=== PATIENT | male | born 1970 | race Caucasian/White ===

== ENCOUNTER 2016-08-07 16:34 | Emergency (ER) | payer MEDICAID ==
[~2016-08-07] VITALS: Ht 162.6 cm; Wt 99.8 kg
[2016-08-07 16:53] VITALS: BP 131/101
--- NOTE | 2016-08-07 17:29 | NUR ---
PATIENT BEING EVALUATED BY Jd TESFAYE OF
[2016-08-07 17:40] VITALS: BP 123/75
--- NOTE | 2016-08-07 17:40 | NUR ---
Patient discharged with v/s stable. Written and verbal after care instructions given and explained. Patient alert, oriented and verbalized understanding of instructions. Ambulatory with steady gait. All questions addressed prior to discharge. ID band removed. Patient advised to follow up with PMD. Rx of GLIPIZIDE,LISINOPRIL,SULINDAC,CLOPIDOGREL,COREG,CYCLOBENZAPRINE,METFORMIN,LANTU S INSULIN,ATORVASTATIN,HUMULIN R,BD SYRINGES given. Patient educated on indication of medication including possible reaction and side effects. Opportunity to ask questions provided and answered.
== END 2016-08-07 17:40 | disposition home or self-care (01) ==
LOC: MED 16:34
DX: Z76.0 Encounter for issue of repeat prescription (principal); E11.9 Type 2 diabetes mellitus without complications; I10 Essential (primary) hypertension

== ENCOUNTER 2017-02-05 13:50 | Emergency (ER) | payer MEDICAID ==
[~2017-02-05] VITALS: Ht 162.6 cm; Wt 109.8 kg
[2017-02-05 14:18] VITALS: BP 150/76
--- NOTE | 2017-02-05 14:30 | NUR ---
Patient to bed 04.
--- NOTE | 2017-02-05 14:42 | NUR ---
PT PRESENTS TO ER W/C/O LBP SINCE LAST NOC. PT DENIES ANY FALL OR INJURY. HX DM, HTN, HYPERLIPIDEMIA. DENIES N/V/D; SKIN IS PINK/WARM/DRY; AAOX4 WITH EVEN AND STEADY GAIT; LUNGS CLEAR BL; HR EVEN AND REGULAR; PT DENIES ANY FEVER, CP, SOB, OR COUGH AT THIS TIME; PATIENT STATES PAIN OF 9/10 AT THIS TIME; VSS; PATIENT POSITIONED FOR COMFORT; HOB ELEVATED; BEDRAILS UP X2; BED DOWN. ER MD MADE AWARE OF PT STATUS.
[2017-02-05] MEDS ORDERED: KETOROLAC 60 MG/2 ML VIAL IM ONE (15:00)
[2017-02-05 15:40] VITALS: BP 120/71
--- NOTE | 2017-02-05 15:40 | NUR ---
Patient discharged with v/s stable. Written and verbal after care instructions given and explained. Patient alert, oriented and verbalized understanding of instructions. Ambulatory with steady gait. All questions addressed prior to discharge. ID band removed. Patient advised to follow up with PMD. Rx of FLEXERIL, TRAMADOL given. Patient educated on indication of medication including possible reaction and side effects. Opportunity to ask questions provided and answered.
== END 2017-02-05 15:40 | disposition home or self-care (01) ==
LOC: MED 13:50
DX: S39.012A Strain of muscle, fascia and tendon of lower back, initial encounter (principal); M62.830 Muscle spasm of back; E11.9 Type 2 diabetes mellitus without complications; I10 Essential (primary) hypertension; X58.XXXA Exposure to other specified factors, initial encounter; Y93.9 Activity, unspecified; Y92.89 Other specified places as the place of occurrence of the external cause; Y99.8 Other external cause status
CPT/HCPCS: 96372; 99283; J1885

== ENCOUNTER 2021-04-24 09:33 | Emergency (ER) | payer SELFPAY ==
[~2021-04-24] VITALS: Ht 165.1 cm; Wt 72.6 kg
[2021-04-24 09:43] VITALS: BP 152/97
--- NOTE | 2021-04-24 09:50 | NUR ---
C/O 08/09 R RIB PAIN S/P FALL X TODAY. PMH: DM
[2021-04-24] MEDS ORDERED: HYDROcodone/APAP 5/325 MG 1 TAB TAB PO ONE (10:00)
[2021-04-24] MEDS ORDERED: ACET-10509 PO (10:52)
[2021-04-24] MEDS ORDERED: ACET-9527 PO (10:52)
[2021-04-24] MEDS ORDERED: IBUP-426 PO (10:52)
[2021-04-24 11:48] VITALS: BP 140/85
--- NOTE | 2021-04-24 11:49 | NUR ---
Patient discharged with v/s stable. Written and verbal after care instructions given and explained. Patient alert, oriented and verbalized understanding of instructions. Ambulatory with steady gait. All questions addressed prior to discharge. ID band removed. Patient advised to follow up with PMD. Rx of HYDROCODONE/ACETAMINOPHEN given. Patient educated on indication of medication including possible reaction and side effects. Opportunity to ask questions provided and answered.
== END 2021-04-24 11:48 | disposition home or self-care (01) ==
LOC: MED 09:33
DX: S22.41XA Multiple fractures of ribs, right side, initial encounter for closed fracture (principal); F17.200 Nicotine dependence, unspecified, uncomplicated; E11.9 Type 2 diabetes mellitus without complications; I10 Essential (primary) hypertension; Z71.6 Tobacco abuse counseling; Z79.899 Other long term (current) drug therapy; V87.8XXA Person injured in other specified noncollision transport accidents involving motor vehicle (traffic), initial encounter; Y93.55 Activity, bike riding; Y92.89 Other specified places as the place of occurrence of the external cause; Y99.8 Other external cause status
CPT/HCPCS: 71101; 99283

== ENCOUNTER 2021-11-03 00:20 | Emergency (ER) | payer MEDICAID ==
[~2021-11-03] VITALS: Ht 162.6 cm; Wt 72.6 kg
[~2021-11-03 00:20] MED LIST: ACET-10509 PO; ACET-9527 PO; IBUP-426 PO
[2021-11-03 00:23] VITALS: BP 130/74
--- NOTE | 2021-11-03 00:23 | NUR ---
to bed ambulatory
--- NOTE | 2021-11-03 00:37 | NUR ---
50 Y/O MALE BIBS FROM HOME, C/O ABCESS TO RIGHT SHOULDER AND LEFT FOREARM X2 WKS. ABCCESS IS RED AND SWOLLEN. PT STATES CONSTANT, SHARP, 9/10 PAIN WITH CHILLS. PT DENIES N/V/D, COUGH, FEEVER, SOB, OR CP. SKIN IS PINK/WARM/DRY. A/OX4, AMBULATORY, UNLABORED BREATHING. HX: DM, HTN, CARDIAC STENT NKA
--- NOTE | 2021-11-03 00:37 | NUR ---
Dr. Fajardo examining patient.
[2021-11-03] MEDS ORDERED: CEPH-588 PO (00:51)
[2021-11-03] MEDS ORDERED: ACET-8386 PO (00:51)
[2021-11-03] MEDS ORDERED: IBUP-2213 PO (00:51)
[2021-11-03 00:57] VITALS: BP 126/70
--- NOTE | 2021-11-03 00:58 | NUR ---
Patient discharged with v/s stable. Written and verbal after care instructions given and explained. Patient alert, oriented and verbalized understanding of instructions. Ambulatory with steady gait. All questions addressed prior to discharge. ID band removed. Patient advised to follow up with PMD. Rx of NORCO, KEFLEX, AND IBUPROFEN given. Patient educated on indication of medication including possible reaction and side effects. Opportunity to ask questions provided and answered. VSS, A/OX4, UNLABORED BREATHING, AMBLULATORY, AND CALM DEMEANOR.
== END 2021-11-03 00:58 | disposition home or self-care (01) ==
LOC: MED 00:20
DX: L02.413 Cutaneous abscess of right upper limb (principal); L03.113 Cellulitis of right upper limb; E11.9 Type 2 diabetes mellitus without complications; I10 Essential (primary) hypertension; F17.200 Nicotine dependence, unspecified, uncomplicated; F15.90 Other stimulant use, unspecified, uncomplicated; Z98.890 Other specified postprocedural states; Z79.899 Other long term (current) drug therapy
CPT/HCPCS: 99283

== ENCOUNTER 2021-11-10 22:46 | Inpatient (IN) | payer MEDICAID ==
[~2021-11-10] VITALS: Ht 165.1 cm; Wt 68.9 kg
[~2021-11-10 22:46] MED LIST changes: +ACET-8386 PO; +CEPH-588 PO; +IBUP-2213 PO
[2021-11-10 22:54] VITALS: BP 145/87
[2021-11-11] MEDS ORDERED: NACL 0.9% 1,000 ML IV ONE (02:45)
[2021-11-11] MEDS ORDERED: KETOROLAC 30 MG/ML VIAL IVP ONE (02:45)
[2021-11-11] MEDS ORDERED: PIPERACILLIN/TAZOBACTAM 3.375 GM in DEXTROSE 5% 50 ML IV ONE (02:45)
[2021-11-11] MEDS ORDERED: VANCOMYCIN 1,000 MG in DEXTROSE 5% 250 ML IV ONE (02:45)
[2021-11-11 03:14] LABS: BASOPHILS % (AUTO) 0.3 % (0.0-2.0); EOSINOPHILS % (AUTO) 0.1 % (0.0-4.0); LYMPHOCYTES # (AUTO) 2.1 K/uL (2.0-11.5); LYMPHOCYTES % (AUTO) 13.7 % (20.5-51.1); MEAN CORPUSCULAR HEMOGLOBIN 29 pg (27-31); MEAN CORPUSCULAR HGB CONC 34 g/dL (33-37); MEAN CORPUSCULAR VOLUME 84.3 fL (80-94); MONOCYTES # (AUTO) 1.2 K/uL (0.8-1.0); MONOCYTES % (AUTO) 7.7 % (1.7-9.3); NEUTROPHILS # (AUTO) 11.8 K/uL (1.8-7.7); NEUTROPHILS % (AUTO) 78.2 % (42.2-75.2); PLATELET COUNT (AUTO) 380 K/uL (140-450); RED BLOOD CELL COUNT(AUTO) 4.51 MIL/uL (4.20-6.10); WHITE BLOOD COUNT (AUTO) 15.2 K/uL (4.8-10.8)
[2021-11-11] MEDS ORDERED: VANCOMYCIN 1,000 MG VIAL ONE (03:23)
[2021-11-11] MEDS ORDERED: PIPERACILLIN/TAZOBACTAM 3.375 GM VIAL IV ONE ×2 (03:23→12:02)
[2021-11-11] MEDS ORDERED: VANCOMYCIN PER PHARMACY MC PRN (03:30)
[2021-11-11 03:42] LABS: ANION GAP 9.8 (8-16); CARBON DIOXIDE 29.1 mmol/L (21-32); CREATININE 0.6 mg/dL (0.6-1.3); POTASSIUM 3.9 mmol/L (3.5-5.1); TOTAL BILIRUBIN 0.3 mg/dL (0.0-1.0)
[2021-11-11] MEDS ORDERED: PIPERACILLIN/TAZOBACTAM 3.375 GM in DEXTROSE 5% 50 ML IV SCH (06:00)
[2021-11-11] MEDS: PIPERACILLIN/TAZOBACTAM 3.375 GM in DEXTROSE 5% 50 ML IV SCH ×4 (06:03→23:11)
[2021-11-11] MEDS ORDERED: ZOLPIDEM 10 MG TAB PO PRN (07:35)
[2021-11-11] MEDS ORDERED: MAG SULF 2000 MG/WATER PREMIX 50 ML IV PRN (07:35)
[2021-11-11] MEDS ORDERED: POTASSIUM CHLORIDE 10 MEQ TABER PO PRN (07:35)
[2021-11-11] MEDS ORDERED: DEXTROSE 50% 50 ML SYR IVP PRN (07:35)
[2021-11-11] MEDS ORDERED: ONDANSETRON 4 MG/2 ML VIAL IVP PRN (07:35)
[2021-11-11] MEDS ORDERED: ACETAMINOPHEN 325 MG TAB PO PRN (07:35)
[2021-11-11] MEDS ORDERED: DOCUSATE SODIUM 100 MG GELCAP PO PRN (07:35)
[2021-11-11 07:41] LABS: BASOPHILS % (AUTO) 0.2 % (0.0-2.0); EOSINOPHILS # (AUTO) 0.1 K/uL (0-0.4); EOSINOPHILS % (AUTO) 0.4 % (0.0-4.0); HEMATOCRIT 40.3 % (36-52); HEMOGLOBIN 13.6 g/dL (12.0-18.0); LYMPHOCYTES # (AUTO) 2.3 K/uL (2.0-11.5); LYMPHOCYTES % (AUTO) 14.5 % (20.5-51.1); MEAN CORPUSCULAR HEMOGLOBIN 29 pg (27-31); MEAN CORPUSCULAR HGB CONC 34 g/dL (33-37); MEAN CORPUSCULAR VOLUME 85.8 fL (80-94); MONOCYTES # (AUTO) 1.3 K/uL (0.8-1.0); MONOCYTES % (AUTO) 8.1 % (1.7-9.3); NEUTROPHILS # (AUTO) 12.2 K/uL (1.8-7.7); NEUTROPHILS % (AUTO) 76.8 % (42.2-75.2); PLATELET COUNT (AUTO) 348 K/uL (140-450); RED BLOOD CELL COUNT(AUTO) 4.69 MIL/uL (4.20-6.10); RED CELL DISTRIBUTION WIDTH 12.9 % (11.6-13.7); WHITE BLOOD COUNT (AUTO) 15.9 K/uL (4.8-10.8)
[2021-11-11 08:13] LABS: ALBUMIN 1.8 g/dL (3.4-5.0); ANION GAP 11.1 (8-16); CARBON DIOXIDE 27.7 mmol/L (21-32); CREATININE 0.6 mg/dL (0.6-1.3); POTASSIUM 3.8 mmol/L (3.5-5.1); TOTAL BILIRUBIN 0.4 mg/dL (0.0-1.0)
[2021-11-11] MEDS: BLOOD GLUCOSE MONITORING 1 DEV DEV FS SCH ×3 (11:46→21:30)
[2021-11-11] MEDS: INSULIN LISPRO SLIDING SCALE 100 UNITS/ML VIAL SUBQ PRN ×3 (11:51→21:34)
[2021-11-11 16:00] VITALS: BP 135/79
[2021-11-11 20:00] VITALS: BP 127/79
[2021-11-11] MEDS: VANCOMYCIN 750 MG in DEXTROSE 5% 250 ML IV SCH (21:23)
[2021-11-11] MEDS: INSULIN LANTUS 100 UNITS/ML 10 ML VIAL SUBQ SCH (21:32)
[2021-11-12 00:30] VITALS: BP 133/65
[2021-11-12 04:00] VITALS: BP 141/86
[2021-11-12] MEDS: PIPERACILLIN/TAZOBACTAM 3.375 GM in DEXTROSE 5% 50 ML IV SCH ×4 (05:22→23:14)
[2021-11-12] MEDS: BLOOD GLUCOSE MONITORING 1 DEV DEV FS SCH ×4 (06:26→20:24)
[2021-11-12] MEDS: INSULIN LISPRO SLIDING SCALE 100 UNITS/ML VIAL SUBQ PRN ×4 (06:28→20:23)
[2021-11-12 07:53] LABS: BASOPHILS # (AUTO) 0.1 K/uL (0.00-0.22); BASOPHILS % (AUTO) 0.3 % (0.0-2.0); EOSINOPHILS % (AUTO) 0.1 % (0.0-4.0); HEMATOCRIT 45.4 % (36-52); LYMPHOCYTES # (AUTO) 2.2 K/uL (2.0-11.5); LYMPHOCYTES % (AUTO) 12.2 % (20.5-51.1); MEAN CORPUSCULAR HEMOGLOBIN 29 pg (27-31); MEAN CORPUSCULAR HGB CONC 33 g/dL (33-37); MEAN CORPUSCULAR VOLUME 87.1 fL (80-94); MONOCYTES # (AUTO) 1.4 K/uL (0.8-1.0); MONOCYTES % (AUTO) 7.7 % (1.7-9.3); NEUTROPHILS # (AUTO) 14.2 K/uL (1.8-7.7); NEUTROPHILS % (AUTO) 79.7 % (42.2-75.2); PLATELET COUNT (AUTO) 443 K/uL (140-450); RED BLOOD CELL COUNT(AUTO) 5.21 MIL/uL (4.20-6.10); RED CELL DISTRIBUTION WIDTH 13.1 % (11.6-13.7); WHITE BLOOD COUNT (AUTO) 17.8 K/uL (4.8-10.8)
[2021-11-12 08:00] VITALS: BP 132/83
[2021-11-12 08:58] LABS: ANION GAP 10.7 (8-16); CARBON DIOXIDE 29.6 mmol/L (21-32); CREATININE 0.7 mg/dL (0.6-1.3); POTASSIUM 4.3 mmol/L (3.5-5.1)
[2021-11-12] MEDS: VANCOMYCIN 750 MG in DEXTROSE 5% 250 ML IV SCH ×2 (09:30→20:03)
[2021-11-12 12:00] VITALS: BP 121/76
[2021-11-12 16:00] VITALS: BP 108/66
[2021-11-12 20:00] VITALS: BP 111/66
[2021-11-12] MEDS: MORPHINE SULFATE 2 MG/ML SYR IVP PRN (20:07)
[2021-11-12] MEDS: INSULIN LANTUS 100 UNITS/ML 10 ML VIAL SUBQ SCH (20:22)
[2021-11-13] VITALS: BP 138/79
[2021-11-13 04:00] VITALS: BP 139/80
[2021-11-13] MEDS: PIPERACILLIN/TAZOBACTAM 3.375 GM in DEXTROSE 5% 50 ML IV SCH ×4 (05:09→23:13)
[2021-11-13] MEDS: INSULIN LISPRO SLIDING SCALE 100 UNITS/ML VIAL SUBQ PRN ×4 (06:30→20:14)
[2021-11-13] MEDS: BLOOD GLUCOSE MONITORING 1 DEV DEV FS SCH ×4 (06:33→20:08)
[2021-11-13 08:00] VITALS: BP 126/78
[2021-11-13 08:15] LABS: BARBITURATE, URINE NEGATIVE ng/ml (NEG <=200); BENZODIAZEPINE, URINE NEGATIVE ng/mL (NEG <=200); CANNABINOID, URINE NEGATIVE ng/mL (NEG <=50); COCAINE, URINE NEGATIVE ng/mL (NEG <=300); OPIATE, URINE POSITIVE ng/mL (NEG <=2000); PHENCYCLIDINE SCREEN,URINE NEGATIVE ng/mL (NEG <=25)
[2021-11-13] MEDS: VANCOMYCIN 750 MG in DEXTROSE 5% 250 ML IV SCH ×2 (08:19→16:44)
[2021-11-13] MEDS: MORPHINE SULFATE 2 MG/ML SYR IVP PRN ×2 (09:46→22:24)
[2021-11-13] MEDS ORDERED: SEVOFLURANE 250 ML BTL INH ONE (12:30)
[2021-11-13 16:00] VITALS: BP 116/74
[2021-11-13] MEDS: INSULIN LANTUS 100 UNITS/ML 10 ML VIAL SUBQ SCH (20:13)
[2021-11-14] VITALS: BP 121/67
[2021-11-14] MEDS: VANCOMYCIN 750 MG in DEXTROSE 5% 250 ML IV SCH ×3 (00:01→16:53)
[2021-11-14] MEDS: PIPERACILLIN/TAZOBACTAM 3.375 GM in DEXTROSE 5% 50 ML IV SCH ×3 (05:09→18:36)
[2021-11-14] MEDS: BLOOD GLUCOSE MONITORING 1 DEV DEV FS SCH ×4 (06:32→20:32)
[2021-11-14] MEDS: INSULIN LISPRO SLIDING SCALE 100 UNITS/ML VIAL SUBQ PRN ×4 (06:35→20:33)
[2021-11-14 08:00] VITALS: BP 124/74
[2021-11-14 09:33] LABS: BASOPHILS # (AUTO) 0.1 K/uL (0.00-0.22); BASOPHILS % (AUTO) 0.4 % (0.0-2.0); EOSINOPHILS # (AUTO) 0.1 K/uL (0-0.4); EOSINOPHILS % (AUTO) 0.4 % (0.0-4.0); HEMATOCRIT 39.4 % (36-52); HEMOGLOBIN 13.5 g/dL (12.0-18.0); LYMPHOCYTES # (AUTO) 2.6 K/uL (2.0-11.5); LYMPHOCYTES % (AUTO) 15.3 % (20.5-51.1); MEAN CORPUSCULAR HEMOGLOBIN 29 pg (27-31); MEAN CORPUSCULAR HGB CONC 34 g/dL (33-37); MEAN CORPUSCULAR VOLUME 84.9 fL (80-94); MONOCYTES # (AUTO) 1.3 K/uL (0.8-1.0); MONOCYTES % (AUTO) 7.7 % (1.7-9.3); NEUTROPHILS # (AUTO) 12.8 K/uL (1.8-7.7); NEUTROPHILS % (AUTO) 76.2 % (42.2-75.2); PLATELET COUNT (AUTO) 471 K/uL (140-450); RED BLOOD CELL COUNT(AUTO) 4.64 MIL/uL (4.20-6.10); RED CELL DISTRIBUTION WIDTH 12.7 % (11.6-13.7); WHITE BLOOD COUNT (AUTO) 16.8 K/uL (4.8-10.8)
[2021-11-14 09:51] LABS: ANION GAP 9.5 (8-16); CARBON DIOXIDE 28.4 mmol/L (21-32); CREATININE 0.7 mg/dL (0.6-1.3); POTASSIUM 3.9 mmol/L (3.5-5.1)
[2021-11-14] MEDS ORDERED: BLOOD GLUCOSE MONITORING 1 DEV DEV FS SCH (12:30)
[2021-11-14] MEDS ORDERED: diphenhydrAMINE 50 MG/ML VIAL IVP PRN (12:30)
[2021-11-14] MEDS ORDERED: MEPERIDINE 25 MG/ML SYR IVP PRN (12:30)
[2021-11-14] MEDS ORDERED: HYDROmorphone 1 MG/ML AMP IVP PRN (12:30)
[2021-11-14] MEDS ORDERED: ONDANSETRON 4 MG/2 ML VIAL IVP PRN (12:30)
[2021-11-14] MEDS ORDERED: LIDOCAINE/EPI MPF 1%1:200000 30 ML VIAL INJ ONE (12:32)
[2021-11-14] MEDS ORDERED: BUPIVACAINE-MPF 0.25% 30 ML VIAL INJ ONE (12:33)
[2021-11-14] MEDS ORDERED: fentaNYL citrate 0.05 MG/ML VIAL ONE (12:34)
[2021-11-14] MEDS ORDERED: PROPOFOL 200 MG/20 ML VIAL IV ONE (12:38)
[2021-11-14] MEDS ORDERED: ONDANSETRON 4 MG/2 ML VIAL ONE (12:46)
[2021-11-14] MEDS ORDERED: MEPERIDINE 50 MG/ML SYR ONE (12:53)
[2021-11-14] MEDS: NACL 0.9% 1,000 ML IV SCH ×2 (14:11→20:50)
[2021-11-14 16:00] VITALS: BP 118/72
[2021-11-14] MEDS ORDERED: INSULIN LANTUS 100 UNITS/ML 10 ML VIAL SUBQ SCH (21:00)
[2021-11-15] VITALS: BP 134/77
[2021-11-15] MEDS: VANCOMYCIN 750 MG in DEXTROSE 5% 250 ML IV SCH ×3 (00:13→16:55)
[2021-11-15] MEDS: PIPERACILLIN/TAZOBACTAM 3.375 GM in DEXTROSE 5% 50 ML IV SCH ×5 (00:13→23:57)
[2021-11-15] MEDS: NACL 0.9% 1,000 ML IV SCH (05:10)
[2021-11-15] MEDS: INSULIN LISPRO SLIDING SCALE 100 UNITS/ML VIAL SUBQ PRN ×4 (06:28→20:27)
[2021-11-15] MEDS: BLOOD GLUCOSE MONITORING 1 DEV DEV FS SCH ×4 (06:28→20:21)
[2021-11-15 07:09] LABS: BASOPHILS # (AUTO) 0.1 K/uL (0.00-0.22); BASOPHILS % (AUTO) 0.6 % (0.0-2.0); EOSINOPHILS # (AUTO) 0.1 K/uL (0-0.4); HEMATOCRIT 38.4 % (36-52); HEMOGLOBIN 13.1 g/dL (12.0-18.0); LYMPHOCYTES # (AUTO) 3.1 K/uL (2.0-11.5); MEAN CORPUSCULAR HEMOGLOBIN 29 pg (27-31); MEAN CORPUSCULAR HGB CONC 34 g/dL (33-37); MEAN CORPUSCULAR VOLUME 85.5 fL (80-94); MONOCYTES # (AUTO) 1.1 K/uL (0.8-1.0); MONOCYTES % (AUTO) 7.9 % (1.7-9.3); NEUTROPHILS # (AUTO) 9.2 K/uL (1.8-7.7); NEUTROPHILS % (AUTO) 67.5 % (42.2-75.2); PLATELET COUNT (AUTO) 491 K/uL (140-450); RED BLOOD CELL COUNT(AUTO) 4.49 MIL/uL (4.20-6.10); RED CELL DISTRIBUTION WIDTH 13.2 % (11.6-13.7); WHITE BLOOD COUNT (AUTO) 13.7 K/uL (4.8-10.8)
[2021-11-15 07:39] LABS: ANION GAP 11.2 (8-16); CARBON DIOXIDE 26.8 mmol/L (21-32); CREATININE 0.6 mg/dL (0.6-1.3)
[2021-11-15 08:00] VITALS: BP 109/63
[2021-11-15] MEDS: lisinopriL 5 MG TAB PO SCH (08:32)
[2021-11-15] MEDS: ATORVASTATIN 20 MG TAB PO SCH (08:32)
[2021-11-15] MEDS: ECOTRIN 81 MG TABEC PO SCH (08:32)
[2021-11-15] MEDS: MORPHINE SULFATE 2 MG/ML SYR IVP PRN (12:14)
[2021-11-15 16:00] VITALS: BP 109/70
[2021-11-15] MEDS ORDERED: INSULIN LANTUS 100 UNITS/ML 10 ML VIAL SUBQ SCH (21:00)
[2021-11-16] MEDS: VANCOMYCIN 750 MG in DEXTROSE 5% 250 ML IV SCH ×2 (00:18→08:51)
[2021-11-16] MEDS: MORPHINE SULFATE 2 MG/ML SYR IVP PRN ×2 (00:22→06:30)
[2021-11-16 06:48] LABS: BASOPHILS # (AUTO) 0.1 K/uL (0.00-0.22); BASOPHILS % (AUTO) 0.5 % (0.0-2.0); EOSINOPHILS # (AUTO) 0.2 K/uL (0-0.4); EOSINOPHILS % (AUTO) 1.7 % (0.0-4.0); HEMATOCRIT 36.5 % (36-52); HEMOGLOBIN 12.5 g/dL (12.0-18.0); LYMPHOCYTES # (AUTO) 3.5 K/uL (2.0-11.5); LYMPHOCYTES % (AUTO) 32.1 % (20.5-51.1); MEAN CORPUSCULAR HEMOGLOBIN 29 pg (27-31); MEAN CORPUSCULAR HGB CONC 34 g/dL (33-37); MEAN CORPUSCULAR VOLUME 85.1 fL (80-94); MONOCYTES # (AUTO) 1.1 K/uL (0.8-1.0); MONOCYTES % (AUTO) 9.7 % (1.7-9.3); NEUTROPHILS # (AUTO) 6.1 K/uL (1.8-7.7); PLATELET COUNT (AUTO) 515 K/uL (140-450); RED BLOOD CELL COUNT(AUTO) 4.29 MIL/uL (4.20-6.10); WHITE BLOOD COUNT (AUTO) 10.9 K/uL (4.8-10.8)
[2021-11-16] MEDS: PIPERACILLIN/TAZOBACTAM 3.375 GM in DEXTROSE 5% 50 ML IV SCH ×2 (06:54→11:49)
[2021-11-16] MEDS: BLOOD GLUCOSE MONITORING 1 DEV DEV FS SCH ×2 (06:56→12:17)
[2021-11-16 07:19] LABS: ANION GAP 8.8 (8-16); CARBON DIOXIDE 29.1 mmol/L (21-32); CREATININE 0.6 mg/dL (0.6-1.3); POTASSIUM 3.9 mmol/L (3.5-5.1)
[2021-11-16 08:00] VITALS: BP 105/60
[2021-11-16] MEDS ORDERED: LISI5TAB24 PO (08:52)
[2021-11-16] MEDS ORDERED: ASPI-1856 PO (08:52)
[2021-11-16] MEDS ORDERED: ATOR20TA40 PO (08:52)
[2021-11-16] MEDS ORDERED: [UNRECOGNIZED DRUG - CODE] PO (08:52)
[2021-11-16] MEDS ORDERED: LANTUS SUBQ (08:52)
[2021-11-16] MEDS ORDERED: CEPH-588 PO (08:53)
[2021-11-16] MEDS ORDERED: INSU-656 SUBQ (08:54)
[2021-11-16] MEDS: lisinopriL 5 MG TAB PO SCH (09:06)
[2021-11-16] MEDS: ECOTRIN 81 MG TABEC PO SCH (09:07)
[2021-11-16] MEDS: ATORVASTATIN 20 MG TAB PO SCH (09:07)
[2021-11-16] MEDS ORDERED: GAUZE TP PRN (12:15)
[2021-11-16] MEDS: INSULIN LISPRO SLIDING SCALE 100 UNITS/ML VIAL SUBQ PRN (12:17)
[2021-11-16 12:57] VITALS: BP 105/60
[2021-11-18] MEDS ORDERED: GAUZE TP SCH (13:00)
== END 2021-11-16 13:50 | disposition home or self-care (01) | DRG 710 ==
LOC: MED 22:46 → MTU 11-11 03:38
PROVIDERS: ADMIT Family Medicine; ATTEND Family Medicine
PROC: 0J9H0ZZ Drainage of Left Lower Arm Subcutaneous Tissue and Fascia, Open Approach (ICD-10-PCS; principal; 2021-11-14 12:30)
DX: A41.9 Sepsis, unspecified organism (principal); E43 Unspecified severe protein-calorie malnutrition; E87.1 Hypo-osmolality and hyponatremia; E11.65 Type 2 diabetes mellitus with hyperglycemia; F15.10 Other stimulant abuse, uncomplicated; D72.829 Elevated white blood cell count, unspecified; L03.114 Cellulitis of left upper limb; I25.10 Atherosclerotic heart disease of native coronary artery without angina pectoris; L02.414 Cutaneous abscess of left upper limb; Z20.822 Contact with and (suspected) exposure to COVID-19; Z79.1 Long term (current) use of non-steroidal anti-inflammatories (NSAID); Z79.891 Long term (current) use of opiate analgesic; Z79.899 Other long term (current) drug therapy; Z72.0 Tobacco use
CPT/HCPCS: 36415; 71046; 73090; 73200; 76881; 80048; 80053; 80202; 80305; 82948; 83036; 83605; 83735; 85025; 85651; 86140; 87040; 87070; 87075; 87081; 87205; 87635-QW; 88304; 93005; 96365; 96367; 96375; 99285; J1644; J1815; J1885; J2001; J2175; J2270; J2405; J2543; J2704; J3010; J3370; J3490; J7060; Q0092

== ENCOUNTER 2022-03-29 19:51 | Emergency (ER) | payer MEDICAID ==
[~2022-03-29] VITALS: Ht 162.6 cm; Wt 72.6 kg
[~2022-03-29 19:51] MED LIST changes: -ACET-10509 PO; -ACET-8386 PO; -ACET-9527 PO; +ASPI-1856 PO; +ATOR20TA40 PO; -IBUP-426 PO; +INSU-656 SUBQ; +LANTUS SUBQ; +LISI5TAB24 PO; +[UNRECOGNIZED DRUG - CODE] PO
[2022-03-29 20:41] VITALS: BP 134/80
--- NOTE | 2022-03-29 20:44 | NUR ---
TO LOBBY A/W BED AMBULATORY
--- NOTE | 2022-03-29 21:15 | NUR ---
PT TO 6
--- NOTE | 2022-03-29 22:49 | NUR ---
Dr. Hill examining patient.
[2022-03-29] MEDS ORDERED: HYDROcodone/APAP 5/325 MG 1 TAB TAB PO ONE (22:55)
[2022-03-29] MEDS ORDERED: ACET-10509 PO (22:59)
[2022-03-29] MEDS ORDERED: ACET-9527 PO (22:59)
[2022-03-29] MEDS ORDERED: CLIN300C2 PO (22:59)
[2022-03-29] MEDS ORDERED: NON ADHERENT DRESSING TP SCH (23:05)
[2022-03-29 23:53] VITALS: BP 134/80
--- NOTE | 2022-03-29 23:57 | NUR ---
Patient discharged with v/s stable. Written and verbal after care instructions given and explained. Patient alert, oriented and verbalized understanding of instructions. Ambulatory with steady gait. All questions addressed prior to discharge. ID band removed. Patient advised to follow up with PMD. Rx of HYDROCODONE/ACETAMINOPHEN, CLEOCIN, TYLENOL given. Patient educated on indication of medication including possible reaction and side effects. Opportunity to ask questions provided and answered.
== END 2022-03-29 23:57 | disposition home or self-care (01) ==
LOC: MED 19:51
DX: L03.115 Cellulitis of right lower limb (principal); E11.9 Type 2 diabetes mellitus without complications; Z79.4 Long term (current) use of insulin; Z79.899 Other long term (current) drug therapy
CPT/HCPCS: 99283